=== PATIENT | female | born 1985 | race Caucasian/White ===

== ENCOUNTER → 2016-09-17 | Outpatient (CLI) | payer BC ==
[2016-09-17 10:34] LABS: CH 30.2; CHCM 34.2; HCT 37.4 % (34.0-46.0); HDW 2.53; HGB 12.6 gm/dL (11.4-16.0); MCH 29.9 pg (25.0-35.0); MCHC 33.7 g/dL (31.0-37.0); MCV 88.5 fL (80.0-100.0); Mean Platelet Volume 7.4; RBC 4.22 m/uL (3.80-5.40); RDW 12.9 % (11.5-15.5); WBC 10.2 k/uL (3.8-10.6)
[2016-09-17 11:04] LABS: Non-African American GFR(MDRD) >60 (>60 ml/min/1.73 sqM)
[2016-09-17 11:33] LABS: Hepatitis B Surface Ag Index 0.05
[2016-09-19 06:04] LABS: HIV-1/HIV-2 Ab Screen NONREAC (NON REAC)
[2016-09-20 03:56] LABS: Toxoplasma Antibody (IgG) <3.0 IU/mL (<7.2)
== END | disposition home or self-care (01) ==
LOC: LABWHC1 09:20
PROVIDERS: ATTEND Obstetrics & Gynecology
DX: Z34.82 Encounter for supervision of other normal pregnancy, second trimester (principal); Z3A.00 Weeks of gestation of pregnancy not specified
CPT/HCPCS: 36415; 82565; 82950; 85027; 86762; 86777; 86778; 86780; 86850; 86900; 86901; 87340; 87389

== ENCOUNTER → 2016-11-01 | Outpatient (CLI) | payer BC ==
--- NOTE | 2016-11-01 16:58 | US ---
EXAMINATION TYPE: US OB anatomy transabd DATE OF EXAM: 11/01/2016 4:43 PM COMPARISON: NONE HISTORY: LGA TECHNIQUE: EXAM MEASUREMENTS: GESTATIONAL AGE / DATING Physician Established: (33 weeks/1 days) EDC: 12/19/2016 Dates by LMP: (33 weeks/3 days) EDC: 12/17/2016 Dates by First Scan: (32 weeks/2 days) EDC: 12/26/2016 Dates by Current Scan for: (32 weeks/2 days) EDC: 12/25/2016 SURVEY IUP: Single PLACENTA: Posterior PREVIA: No previa LUCERO: 13.7 cm Normal CERVICAL LENGTH (transabdominal: norm > 3.0cm): 5.0 cm BIOMETRY PRESENTATION: Breech BPD: 8.1 cm 32 weeks / 4 days HC: 29.3 cm 32 weeks / 3 days AC: 37.3 cm 31 weeks / 3 days FL: 6.3 cm 32 weeks / 5 days ESTIMATED WEIGHT IN GRAMS: 1870 grams ESTIMATED WEIGHT IN LBS/OZS: 4 lbs. 2 oz. WEIGHT PERCENTAGE BASED ON ESTABLISHED DATE: 12 % HC/AC: 1.1 FL/AC: 23% HEART RATE: 135 bpm RHYTHM: Normal ANATOMY SEEN (within normal limits): * Lateral Vent (< 1 cm) 1.0 cm * Cisterna Magna (< 1.1 cm) 0.6 cm * Cerebellum (varies with age) 3.9 cm Cavus Septi Pellucidi Four Chamber Heart Outflow tracts: LVOT/RVOT Stomach Situs Nose / Lips Diaphragm Kidneys (bilateral) Bladder Three Vessel Cord Longitudinal Spine Transverse Spine Arms (bilateral) Legs (bilateral) ANATOMY NOT SEEN: * Nuchal Fold (< 0.6 cm) cm Choroid Plexus (bilateral) Midline Falx Cord Insert TECHNOLOGIST IMPRESSION: growth according to dates, limited anatomy due to advanced gestational age and position. Lateral ventricle measuring at 1.0 cm, upper limits of normal. IMPRESSION: Finn fetus present in a breech presentation with a gestational age of 32 weeks 2 days +/- 3 week s. Estimated date of confinement based on this examination is 12/25/2016.
== END | disposition home or self-care (01) ==
LOC: RADUSWWP 15:40
PROVIDERS: ATTEND Obstetrics & Gynecology
DX: O36.63X0 Maternal care for excessive fetal growth, third trimester, not applicable or unspecified (principal); O32.1XX0 Maternal care for breech presentation, not applicable or unspecified; Z3A.32 32 weeks gestation of pregnancy
CPT/HCPCS: 76811

== ENCOUNTER 2016-12-19 10:51 | Inpatient (IN) | payer BC ==
[2016-12-23] MEDS ORDERED: TERBUTALINE 1 MG/ML VIAL SQ PRN (06:52)
[2016-12-23] MEDS ORDERED: CARBOPROST TROMETHAMINE 250 MCG/ML 1 ML AMP IM PRN (06:52)
[2016-12-23] MEDS ORDERED: LIDOCAINE 1% (PF) 10 MG/ML (30 ML SDV) SQ PRN (06:52)
[2016-12-23] MEDS ORDERED: OXYTOCIN 10 UNIT/ML 1 ML VIAL IM PRN (06:52)
[2016-12-23] MEDS ORDERED: METHYLERGONOVINE 0.2 MG/ML 1 ML AMP IM PRN (06:52)
[2016-12-23] MEDS ORDERED: OXYTOCIN 20 UNITS/1000 ML NS 1,000 ML IV SCH (07:00)
[2016-12-23 07:04] LABS: Basophils % (A) 0 %; CH 30.5; Eosinophils # (A) 0.1 k/uL (0-0.7); Eosinophils % (A) 1 %; HCT 36.8 % (34.0-46.0); HDW 2.61; HGB 12.6 gm/dL (11.4-16.0); Luc # (Auto) 0.19; Luc % (Auto) 2; Lymphocytes # (A) 2.2 k/uL (1.0-4.8); Lymphocytes % (A) 23 %; MCH 29.8 pg (25.0-35.0); MCHC 34.1 g/dL (31.0-37.0); MCV 87.5 fL (80.0-100.0); Mean Platelet Volume 8.1; Monocytes # (A) 0.4 k/uL (0-1.0); Monocytes % (A) 5 %; Neutrophils # (A) 6.3 k/uL (1.3-7.7); Neutrophils % (A) 69 %; RBC 4.21 m/uL (3.80-5.40); RDW 13.4 % (11.5-15.5); WBC 9.3 k/uL (3.8-10.6); WBC (Perox) 9.35
[2016-12-23] MEDS: LACTATED RINGERS 1,000 ML IV SCH ×3 (07:04→22:01)
[2016-12-23 07:44] VITALS: BMI 36.6
[2016-12-23] MEDS ORDERED: SODIUM CHLORIDE 0.9% 100 ML BAG ONE (14:25)
[2016-12-23] MEDS ORDERED: fentaNYL (PF) 50 MCG/ML 5 ML AMP ONE (14:25)
[2016-12-23] MEDS ORDERED: BUPIVACAINE (PF) 0.25% 30 ML VIAL ONE (14:25)
[2016-12-23] MEDS ORDERED: CLINDAMYCIN 600 MG in DEXTROSE 5% IN WATER 50 ML IVPB SCH ×2 (22:00)
[2016-12-24] MEDS ORDERED: CITRIC ACID-SODIUM CITRATE 15 ML CUP PO ONE (01:03)
[2016-12-24] MEDS ORDERED: ONDANSETRON 4 MG/2 ML VIAL ONE (01:18)
[2016-12-24] MEDS ORDERED: KETOROLAC 30 MG/ML 1 ML VIAL ONE (01:18)
[2016-12-24] MEDS ORDERED: LACTATED RINGERS 1,000 ML BAG IV ONE (01:18)
[2016-12-24] MEDS ORDERED: MORPHINE SULFATE (PF) 0.3 MG/0.3 ML SYR ONE (01:18)
[2016-12-24] MEDS ORDERED: OXYTOCIN 10 UNIT/ML 1 ML VIAL ONE (01:18)
[2016-12-24] MEDS ORDERED: PHENYLEPHRINE-0.9% NACL SYG 1 MG/10 ML SYRINGE ONE (01:18)
[2016-12-24] MEDS ORDERED: KETOROLAC 30 MG/ML 1 ML VIAL IVP PRN (01:39)
[2016-12-24] MEDS ORDERED: diphenhydrAMINE 50 MG/ML 1 ML VIAL IVP PRN ×3 (01:39→01:59)
[2016-12-24] MEDS ORDERED: ONDANSETRON 4 MG/2 ML VIAL IVP PRN ×2 (01:39→01:59)
[2016-12-24] MEDS ORDERED: MORPHINE SULFATE 4 MG/ML SYRINGE IVP PRN (01:39)
[2016-12-24] MEDS ORDERED: NALOXONE 0.4 MG/ML 1 ML VIAL IV PRN ×2 (01:39→01:59)
[2016-12-24] MEDS ORDERED: ZOLPIDEM 5 MG TAB PO PRN (01:59)
[2016-12-24] MEDS ORDERED: ACETAMINOPHEN TAB 325 MG TAB PO PRN (01:59)
[2016-12-24] MEDS ORDERED: IBUPROFEN 600 MG TAB PO PRN (01:59)
[2016-12-24] MEDS ORDERED: diphenhydrAMINE 25 MG CAP PO PRN (01:59)
[2016-12-24] MEDS ORDERED: diphenhydrAMINE 50 MG CAP PO PRN (01:59)
[2016-12-24] MEDS ORDERED: METOCLOPRAMIDE 5 MG/ML 2 ML VIAL IVP PRN (01:59)
--- NOTE | 2016-12-24 02:03 | P.HPOB ---
History of Present Illness H&P Date: 12/24/16 Chief Complaint: Intrauterine at term Nini is a 31-year-old at 40 weeks 4 days gestation arise for induction of labor. Her course was unremarkable and she was feeling well at this time. Pertinent labs did include O+ blood type Rh have been was negative. Rubella was immune, hepatitis B surface antigen and groupie strep were both negative as well. This morning at presentation she was dilated 1 cm 60% effaced artificial rupture membranes was performed clear fluid was noted. She planned epidural for analgesia. On physical exam vital signs are stable and afebrile. Heart regular, lungs clear, extremities without pain. heart tones in the 130s to 140s and reactive. Assessment intrauterine at term. Plan expect spontaneous vaginal delivery Past Medical History Past Medical History: No Reported History Additional Past Medical History / Comment(s): 2014 uncomplicated of male History of Any Multi-Drug Resistant Organisms: None Reported Past Surgical History: No Surgical Hx Reported Past Anesthesia/Blood Transfusion Reactions: No Reported Reaction Past Psychological History: No Psychological Hx Reported Smoking Status: Never smoker - Past Family History Father Family Medical History: No Reported History Medications and Allergies Home Medications Medication Instructions Recorded Confirmed Type Pnv with Ca,No.72/Iron/FA 1 tab PO DAILY 12/23/16 12/23/16 History [ Plus Tablet] Allergies Allergy/AdvReac Type Severity Reaction Status Date / Time Penicillins Allergy Rash/Hives Verified 12/23/16 06:49 Exam Osteopathic Statement: *. No significant issues noted on an osteopathic structural exam other than those noted in the History and Physical/Consult. - Vital Signs Vital signs: Vital Signs Temp Resp BP 12/23/16 07:36 97.0 F L 17 110/71 Intake and Output 12/23/16 12/23/16 12/24/16 14:59 22:59 06:59 Intake Total 1000 Output Total 850 Balance 150 Intake: Intake, IV Titration 1000 Amount Lactated Ringers 1,000 ml 1000 @ 125 mls/hr IV .Q8H [facility] Rx#:[id number] Output: Urine 850 Straight 250 Other: # Voids 1 Weight 90.718 kg Patient Weight 12/24/16 06:59 Weight 90.718 kg - OBG Physical Exam Abdomen: bowel sounds normal, no diffuse tenderness, no bruit present, no guarding noted, no hepatomegaly, no splenomegaly, no mass Vulva: both: normal Vagina: normal moisture, no discharge Cervix: no lesion, no discharge Results Result Diagrams: 12/23/16 06:55
--- NOTE | 2016-12-24 02:07 | P.OP ---
Date of Procedure: 12/24/16 Preoperative Diagnosis: Intrauterine at 40 weeks: Failure to progress Postoperative Diagnosis: Same Procedure(s) Performed: Primary Low-transverse section Anesthesia: spinal Surgeon: Marshall Lynne Formal Wear Rental Clerk #1: Rivka Prescott Estimated Blood Loss (ml): 500 IV fluids (ml): 1,000 Urine output (ml): 100 Pathology: other (Placenta) Condition: stable Disposition: floor Operative Findings: Female delivered from left occiput transverse position It is noted scores were 8 and 9 at one and 5 minutes respectively and the weight was 6 lbs. 15 oz. Description of Procedure: Nini was taken to the operating suite where a spinal anesthetic was found to be adequate. She was prepped and draped in the normal sterile fashion and placed in the dorsal supine position with leftward tilt. Initially a Pfannenstiel skin incision was made and this incision was then carried through to the underlying layer of the fascia with the second knife. Fascia was then nicked in the midline and this opening was extended laterally with Paredes scissors. Superior and inferior aspect of this incision were then grasped tented up and bluntly and sharply dissected off the rectus muscles rectus muscles were then divided midline and sharp dissection through the peritoneum was made. This opening was then extended superiorly and inferiorly with good visualization of both bowel bladder. Bladder blade was then placed bladder flap identified and entered sharply with Metzenbaum scissors. This opening was then extended across face uterus with Metzenbaum scissors and her bladder flap was digitally created. Knife was then used to incise uterus hemostat was then used to open this incision completely and it was then extended bluntly. Head was then atraumatically delivered. Mouth nares were bulb suctioned anterior posterior shoulders were then delivered with gentle downward upper traction. Umbilical cord was then clamped cut usual fashion an nursery personnel was present to assume care. Placenta was then delivered intact and Pitocin was added to the IV. Uterus was then exteriorized cleared of clots and debris and closed in 2 layers with 0 Vicryl suture. She was noted that the corner did have a little bit of bleeding and required [id number] stitch sutures to obtain excellent hemostasis. Once excellent hemostasis was obtained blood and debris was suctioned the posterior cul-de-sac and uterus was reinserted into the abdomen. Reinspection incision showed hemostasis therefore peritoneal layer was closed with 0 Vicryl suture. Fascial layer was then closed with 0 Vicryl suture one layer of 3-0 Vicryl was placed in the deep subcuticular tissues to reapproximate skin and close space. Skin was then closed with 3 -0 Vicryl on a Bo needle. Sponge, lap, needle counts were all correct 2. Patient was then taken to the recovery room in stable and satisfactory condition.
[2016-12-24] MEDS: LACTATED RINGERS 1,000 ML IV SCH ×4 (03:28→19:19)
[2016-12-24] MEDS: SENNOSIDES-DOCUSATE SODIUM 1 EACH TAB PO SCH ×2 (08:21→20:26)
--- NOTE | 2016-12-24 10:39 | P.PNOBGPC ---
Subjective - Subjective Principal diagnosis: Postoperative day 0 Interval history: Currently Nini is doing well from her section approximate 8 hours ago. She is just now getting up sure pain is well tolerated at this time she is not really had anything to eat as she does have some nausea but she did receive Zofran seems to be little bit better. Otherwise we will be watching her closely today and advancing things slowly. Likely she will need by mouth pain medication later day. Otherwise currently again she is stable. Objective - Vital Signs Latest vital signs: Vital Signs Temp Pulse Resp BP Pulse Ox 12/24/16 07:57 98.3 F 74 18 102/67 95 12/24/16 04:07 97.0 F L 62 14 95/55 95 12/24/16 03:37 58 L 16 95/57 95 12/24/16 03:07 97.0 F L 68 16 102/60 96 12/24/16 02:52 97.0 F L 76 16 106/60 97 12/24/16 02:37 97.2 F L 88 16 96/64 95 12/24/16 02:22 84 16 100/56 96 12/24/16 02:07 97.6 F 83 16 90/51 99 Intake and Output 12/23/16 12/24/16 12/24/16 22:59 06:59 14:59 Intake Total 1000 2100 Output Total 850 600 130 Balance 150 1500 -130 Intake: IV 1600 Clindamycin 600 mg In 100 Dextrose 5% in Water 50 ml @ 100 mls/hr IVPB Q8HR [facility] Rx#:[id number] Intake, IV Titration 1000 500 Amount Lactated Ringers 1,000 ml 1000 @ 125 mls/hr IV .Q8H [facility] Rx#:[id number] Lactated Ringers 1,000 ml 500 @ 125 mls/hr IV .Q8H [facility] Rx#:[id number] Output: Urine 850 100 100 Straight 250 100 Emesis 30 Estimated Blood Loss 500 Other: Voiding Method Indwelling Catheter Indwelling Catheter
[2016-12-24] MEDS ORDERED: IBUPROFEN 600 MG TAB PO ONE (23:38)
[2016-12-25] MEDS ORDERED: Acetaminophen-Codeine 300-30mg TAB PO PRN (00:34)
[2016-12-25 01:04] VITALS: TEMP 98.4
[2016-12-25] MEDS: Acetaminophen-Codeine 300-30mg TAB PO PRN ×2 (04:16→12:57)
[2016-12-25 07:12] LABS: Basophils % (A) 0 %; CH 30.5; CHCM 35.5; Eosinophils # (A) 0.1 k/uL (0-0.7); Eosinophils % (A) 1 %; HCT 32.9 % (34.0-46.0); HDW 2.65; HGB 11.3 gm/dL (11.4-16.0); Luc # (Auto) 0.17; Luc % (Auto) 1; Lymphocytes # (A) 1.7 k/uL (1.0-4.8); Lymphocytes % (A) 13 %; MCH 29.7 pg (25.0-35.0); MCHC 34.4 g/dL (31.0-37.0); MCV 86.5 fL (80.0-100.0); Mean Platelet Volume 8.4; Monocytes # (A) 0.7 k/uL (0-1.0); Monocytes % (A) 5 %; Neutrophils # (A) 10.6 k/uL (1.3-7.7); Neutrophils % (A) 80 %; RDW 13.4 % (11.5-15.5); WBC 13.3 k/uL (3.8-10.6); WBC (Perox) 12.37
[2016-12-25] MEDS: LACTATED RINGERS 1,000 ML IV SCH ×2 (08:00→10:49)
[2016-12-25] MEDS: SENNOSIDES-DOCUSATE SODIUM 1 EACH TAB PO SCH (08:01)
[2016-12-25 08:41] VITALS: BP 112/64; PULSE 92; RESP 18
--- NOTE | 2016-12-25 10:04 | P.PNOBGPC ---
Subjective - Subjective Principal diagnosis: Postop day 1 Interval history: Nini seen and evaluated. She is unsure if she wants home today or wait tomorrow. We'll continue to monitor her through the day she sure pain is well- controlled and there are no other changes. Should she decide be discharged later today that we fine. Prescriptions have been provided already. All the questions are answered for her at this time. Her vital signs are stable and afebrile. Heart regular, lungs clear, extremities without pain. Abdomen soft uterus is firm lochia is reported be light. Incisions intact. Assessment postop day 1. Plan discharged home follow up with me in 1 week. It is noted she is postop day 1 and that she did deliver the middle night medicine more why we would be more apt allow her to go home today she did deliver very early in the morning. Patient reports: Reports appetite normal : doing well Objective - Vital Signs Latest vital signs: Vital Signs Temp Pulse Resp BP Pulse Ox 12/25/16 08:00 98.4 F 92 18 112/64 96 12/25/16 00:00 98.4 F 84 16 106/63 96 12/24/16 19:53 98.3 F 70 16 100/62 96 12/24/16 15:11 98.1 F 73 18 98/56 93 L 12/24/16 12:00 98.1 F 66 18 105/59 95 Intake and Output 12/24/16 12/25/16 12/25/16 22:59 06:59 14:59 Intake Total 375 600 600 Output Total 600 Balance -225 600 600 Intake: Intake, IV Titration 375 Amount Lactated Ringers 1,000 ml 375 @ 125 mls/hr IV .Q8H [facility] Rx#:[id number] Oral 600 600 Output: Urine 600 Other: Voiding Method Toilet Toilet - Labs Labs: Abnormal Lab Results - Last 24 Hours (Table) 12/25/16 Range/Units 06:59 WBC 13.3 H (3.8-10.6) k/uL Hgb 11.3 L (11.4-16.0) gm/dL Hct 32.9 L (34.0-46.0) % Neutrophils # 10.6 H (1.3-7.7) k/uL
--- NOTE | 2016-12-25 10:49 | P.DS ---
Providers Date of admission: 12/23/16 06:34 Expected date of discharge: 12/25/16 Attending physician: Marshall Lynne Primary care physician: Stated None Hospital Course: Nini is feeling like she is ready to go home today. We'll plan discharged home later today. Vital signs are stable afebrile. There is no other changes noted from her progress note from earlier this morning. Plan will be to discharge her home today if she does change her mind be have to canceled discharge and plan for discharge tomorrow. Patient Condition at Discharge: Good Plan - Discharge Summary New Discharge Prescriptions: Acetaminophen-Codeine 300-30mg [Tylenol #3] 1 tab PO Q4H PRN #30 tablet PRN Reason: Pain Ibuprofen [Motrin] 600 mg PO Q6HR PRN #30 tab PRN Reason: Pain Discharge Medication List Pnv with Ca,No.72/Iron/FA [ Plus Tablet] 1 tab PO DAILY 12/23/16 [ History] Acetaminophen-Codeine 300-30mg [Tylenol #3] 1 tab PO Q4H PRN #30 tablet [Rx] Ibuprofen [Motrin] 600 mg PO Q6HR PRN #30 tab 12/25/16 [Rx] Follow up Appointment(s)/Referral(s): Marshall Lynne DO [Doctor of Osteopathic Medicine] - 1 Week Activity/Diet/Wound Care/Special Instructions: No heavy lifting, limit stairs and driving and pelvic rest. If any high temperatures, heavy bleeding, or severe pain call my office Discharge Disposition: HOME SELF-CARE
--- NOTE | 2016-12-25 15:39 | P.PN ---
Subjective pod 1 status post spinal duramorph; doing ok Objective - Vital Signs Vital signs: Vital Signs Temp 98.4 F 12/25/16 08:00 Pulse 92 12/25/16 08:00 Resp 18 12/25/16 08:00 BP 112/64 12/25/16 08:00 Pulse Ox 96 12/25/16 08:00 Intake & Output 12/24/16 12/25/16 12/25/16 18:59 06:59 18:59 Intake Total 1250 600 600 Output Total 1530 Balance -280 600 600 Intake: Intake, IV Titration 1250 Amount Lactated Ringers 1,000 ml 1250 @ 125 mls/hr IV .Q8H [facility] Rx#:[id number] Oral 600 600 Output: Urine 1500 Straight 400 Emesis 30 Other: Voiding Method Toilet Toilet - Labs CBC & Chem 7: 12/25/16 06:59 Labs: Abnormal Lab Results - Last 24 Hours (Table) 12/25/16 Range/Units 06:59 WBC 13.3 H (3.8-10.6) k/uL Hgb 11.3 L (11.4-16.0) gm/dL Hct 32.9 L (34.0-46.0) % Neutrophils # 10.6 H (1.3-7.7) k/uL
== END 2016-12-25 15:30 | disposition home or self-care (01) | DRG 766 ==
LOC: 4FBP 12-23 06:34
PROVIDERS: ADMIT Obstetrics & Gynecology; ATTEND Obstetrics & Gynecology
PROC: 10907ZC Drainage of Amniotic Fluid, Therapeutic from Products of Conception, Via Natural or Artificial Opening (ICD-10-PCS; principal; 2016-12-23)
PROC: 3E033VJ Introduction of Other Hormone into Peripheral Vein, Percutaneous Approach (ICD-10-PCS; principal; 2016-12-23)
PROC: 3E0R3CZ (ICD-10-PCS; principal; 2016-12-23)
PROC: 00HU33Z Insertion of Infusion Device into Spinal Canal, Percutaneous Approach (ICD-10-PCS; principal; 2016-12-23)
PROC: 10D00Z1 Extraction of Products of Conception, Low, Open Approach (ICD-10-PCS; 2016-12-24)
DX: O48.0 Post-term pregnancy (principal); O62.2 Other uterine inertia; Z88.0 Allergy status to penicillin; Z37.0 Single live birth; Z3A.40 40 weeks gestation of pregnancy
CPT/HCPCS: 85025; 88307

== ENCOUNTER 2022-05-31 09:43 | Emergency (ER) | payer BC ==
[2022-05-31 09:54] VITALS: RESP 18; TEMP 98
--- NOTE | 2022-05-31 11:07 | XR ---
EXAMINATION TYPE: XR tibia fibula 2 views LT DATE OF EXAM: 05/31/2022 Comparison: None Clinical History: 37-year-old female with popping sensation while playing tennis, pain, lower tib/Ach illes Findings: There appears to be fusiform thickening of the middle third Achilles tendon at the level of the poste rior malleolus. Otherwise, no acute fracture, subluxation, or dislocation. Impression: Unable to exclude fusiform thickening of the middle third Achilles tendon. Given the patient's histor y, underlying Achilles tendon injury would be difficult to exclude. No acute osseous abnormality seen . If indicated, Achilles tendon ultrasound may be useful to further evaluate.
--- NOTE | 2022-05-31 11:23 | ED ---
Lower Extremity Injury HPI - General Chief Complaint: Extremity Injury, Lower Stated Complaint: leg pain Time Seen by Provider: 05/31/22 09:58 Source: patient, RN notes reviewed Mode of arrival: ambulatory Limitations: no limitations - History of Present Illness Initial Comments: 37-year-old female presents emergency department with chief complaint left calf pain. Patient states that she went to push off to run for a ball and tenderness and states she felt a pop in her calf. Patient states she has moderate pain pain with range of motion. Patient has a prior injuries patient states it's better at rest worse with any movement denies any paresthesias. - Related Data Home Medications Medication Instructions Recorded Confirmed Levono-E Estrad 0.15-0.03-0.01 Tab 1 tab PO HS 05/31/22 05/31/22 Previous Rx's Medication Instructions Recorded Ibuprofen [Motrin] 600 mg PO Q8HR PRN #20 tab 05/31/22 Allergies Allergy/AdvReac Type Severity Reaction Status Date / Time Penicillins Allergy Rash/Hives Verified 05/31/22 10:56 Review of Systems ROS Statement: Those systems with pertinent positive or pertinent negative responses have been documented in the HPI. ROS Other: All systems not noted in ROS Statement are negative. Past Medical History Past Medical History: No Reported History Additional Past Medical History / Comment(s): 2015 uncomplicated of male History of Any Multi-Drug Resistant Organisms: None Reported Past Surgical History: No Surgical Hx Reported Past Anesthesia/Blood Transfusion Reactions: No Reported Reaction Past Psychological History: No Psychological Hx Reported Smoking Status: Never smoker Past Alcohol Use History: Occasional Past Drug Use History: None Reported - Past Family History Father Family Medical History: No Reported History General Exam Limitations: no limitations General appearance: alert, in no apparent distress Head exam: Present: atraumatic, normocephalic, normal inspection Eye exam: Present: normal appearance, PERRL, EOMI. Absent: scleral icterus, conjunctival injection, periorbital swelling Respiratory exam: Present: normal lung sounds bilaterally. Absent: respiratory distress, wheezes, rales, rhonchi, stridor Cardiovascular Exam: Present: regular rate, normal rhythm, normal heart sounds. Absent: systolic murmur, diastolic murmur, rubs, gallop, clicks Extremities exam: Present: other (Left calf there is tenderness palpation and throughout the Achilles, positive Cervantes test, neurovascular intact) Course Vital Signs 05/31/22 09:50 Temperature 98.0 F Pulse Rate 99 Respiratory 18 Rate Blood Pressure 139/95 O2 Sat by Pulse 99 Oximetry Procedures - Orthopedic Splinting/Casting Injury #1 Side: left Lower Extremity Injury Location: short leg, ankle, foot Lower Extremity Immobilizer: posterior splint, synthetic pre-padded splint Other Orthopedic Equipment: crutches Medical Decision Making - Medical Decision Making X-rays shows some thickening over the Achilles region, concern for possible injury patient was splinted and will follow-up with orthopedics. Disposition Clinical Impression: Achilles tendon injury Disposition: HOME SELF-CARE Condition: Stable Instructions (If sedation given, give patient instructions): Achilles Tendon Rupture (ED) Additional Instructions: Please return to the Emergency Department if symptoms worsen or any other concerns. Prescriptions: Ibuprofen [Motrin] 600 mg PO Q8HR PRN #20 tab PRN Reason: Pain Is patient prescribed a controlled substance at d/c from ED?: No Referrals: Thanh Martinez MD [STAFF PHYSICIAN] - 1-2 days Time of Disposition: 11:23
[2022-05-31 11:47] VITALS: BP 136/87; PULSE 84
== END 2022-05-31 11:45 | disposition home or self-care (01) ==
LOC: EC 09:43
DX: S86.002A Unspecified injury of left Achilles tendon, initial encounter (principal); Z88.0 Allergy status to penicillin; X50.0XXA Overexertion from strenuous movement or load, initial encounter
CPT/HCPCS: 99283

== ENCOUNTER 2022-06-08 11:51 | Day surgery (SDC) | payer BC ==
[~2022-06-08 11:51] MED LIST: DEXAMETHASONE SOD PHOSPHATE 4 MG/ML 1 ML VIAL IV ONE; HYDROmorphone 0.5 MG/0.5 ML SYRINGE IVP PRN; LACTATED RINGERS 1,000 ML IV SCH; ONDANSETRON 4 MG/2 ML VIAL IVP ONE
[2022-06-08] MEDS ORDERED: SCOPOLAMINE 1 MG/72 HR PATCH TRANSDERM ONE (12:45)
[2022-06-08] MEDS ORDERED: MIDAZOLAM 2 MG/2 ML VIAL IVP ONE (12:59)
[2022-06-08] MEDS ORDERED: BUPIVACAINE (PF) 0.5% 30 ML VIAL MISCELLANE ONE (13:02)
--- NOTE | 2022-06-08 13:14 | P.ANPRN ---
Procedure Note - Anesthesia - Nerve Block Performed Left Popliteal Single Time Out Performed: Yes (1258) Date of Procedure: 06/08/22 Procedure Start Time: 12:58 Procedure Stop Time: 12:06 Location of Patient: PreOp Indication: Acute Post-Operative Pain, Dx/Pain Location (Left ankle), Requested by Surgeon Specifically requested for management of pain by DrNargis: Ceasar Tee Sedation Type: Sedate with meaningful contact maintained Preparation: Sterile Prep Position: Right Lateral Catheter: None Needle Types: Pajunk (100 mm) Needle Gauge: 21 Ultrasound used to visualize needle placement: Yes Ultrasound used to observe medication spread: Yes Injectate: 0.5% Ropivacaine (see comment for volume) (25 cc) Narrative: in addition to this, 5 mL of 0.5% ropivacaine infiltrated between medial malleolus and the extensor halluicis tendon to cover the saphenous nerve at the ankle. Blood Aspirated: No Pain Paresthesia on Injection Noted: No Resistance on Injection: Normal Image Stored and Saved: Yes Events: Uneventful and Well Tolerated
[2022-06-08] MEDS ORDERED: fentaNYL (PF) 50 MCG/ML 2 ML AMP ONE (13:24)
[2022-06-08] MEDS ORDERED: SUCCINYLCHOLINE CHLORIDE 200 MG/10 ML VIAL IV ONE (13:24)
[2022-06-08] MEDS ORDERED: ROPIVACAINE 5 MG/ML 30 ML VIAL ONE (13:24)
[2022-06-08] MEDS ORDERED: LIDOCAINE 2% INJ 20 MG/ML (2 ML VIAL) ONE (13:24)
[2022-06-08] MEDS ORDERED: MIDAZOLAM 2 MG/2 ML VIAL ONE (13:24)
[2022-06-08] MEDS ORDERED: PROPOFOL 10 MG/ML 20 ML VIAL IV ONE (13:24)
--- NOTE | 2022-06-08 14:48 | P.OP ---
Date of Procedure: 06/08/22 Preoperative Diagnosis: Left Achilles tendon rupture Postoperative Diagnosis: Same Procedure(s) Performed: Primary repair of left Achilles tendon rupture Implants: Arthrex 4.75 mm swivel lock anchors 2 Anesthesia: MUKESHA Surgeon: Ceasar Tee Estimated Blood Loss (ml): 2 Pathology: none sent Condition: stable Disposition: PACU Description of Procedure: Prior to the patient being brought to the operating room, anesthesia administered a nerve block on the affected lower extremity. The patient was then taken to the operating room. Timeout was taken to confirm correct patient identifiers, correct site of surgery, and correct procedure. When all staff in the room were in agreement with the timeout, the patient was induced and placed under general anesthesia. The patient was then placed on the operating room table in the prone position with the ankles to the edge of the bed, with appropriate padding beneath bony prominences and in the thoracic area. Once anesthesia was satisfied with the position of the patient. A well-padded tourniquet was placed on the thigh of the affected extremity. The leg was then prepped and draped in the usual manner. The leg was exsanguinated, the knee slightly flexed, and the tourniquet inflated to 250 mmHg. Attention was directed over the posterior ankle where there was a palpable defect in the Achilles tendon noted. Transverse incision was made at the level of the defect. The incision was deepened down to the subcutaneous tissue careful to identify, avoid, and retract any neurovascular structures and cauterize any bleeding vessels. Blunt dissection was then carried down to the peritenon. Peritenon was incised and reflected away from the proximal and distal stumps of the rupture site. There was significant fraying as to be expected in this type of injury. Any nonviable ends of the tendon were trimmed away with scissors. Blunt dissection was then used to separate the peritenon from the body of the proximal portion of the stump. A ring forceps was used to grab the proximal stump and placed distal traction on it. The Arthrex PARS jig was then inserted with the arms on either side of the tendon but inside the peritenon. A straight needle was placed in the #1 slot in the jig to lock the tendon in place. When the clamp was removed that was holding the tendon there was no shortening. Straight needles with fiber tape suture were then passed through holes 2 through 4. And then another sutures plaster through the #1 needle was placed through the tendon. A total of 4 sutures were passed. All the sutures were then aligned and then the jig was slowly pulled distally bring the suture between the peritenon and tendon. Then tension was placed on both ends of the suture group to take the creep out of the suture within the tendon. And pulling on both sets of sutures created tension within the gastroc muscle belly indicating that there was good grasp of the tissue with the suture. Then 2 small stab incisions were made on either side of the Achilles insertion on the calcaneus. These were deepened bluntly down to bone and then the 3.4 mm drill bit was used to create holes for the 4.75 swivel lock anchors. Using the incisions as an entry point, the tendon passer with wire loop was then placed through the distal portion of the tendon so that it passed through the stump at the rupture site. Then the suture passing loop was used to grasp the suture from the proximal stump and pulled through the distal stump and out the small stab incision. This was done through both the medial and lateral holes. One set of sutures were then placed through the 4.75 swivel lock anchor and then inserted into the corresponding drill hole in the calcaneus, and advanced until fully seated. Then the other set of sutures were placed through the 4.75 swivel lock anchor, then tension was placed on the suture to pull it tight with the ankle positioned just slightly plantar flexed. With the tensioning and ankle position correct, the remaining 4.75 mm swivel lock anchor was inserted into the other drill hole and advanced locking the suture in place. With the repair completed, the knee was flexed to 90 and Cervantes test performed which was found to be negative. All suture was then cut and then all wounds irrigated thoroughly with antibiotic saline. Subcutaneous closure of the wounds was done with 4-0 Monocryl. Skin closure done with 4-0 Stratafix in a running subcuticul ar manner. Dermal glue was applied to the incisions and allowed to dry. Then Steri-Strips were applied over the incisions. An Arthrex jumpstart dressing was placed over the incisions and then a bulky dry dressings applied to the leg. Then a well-padded, well molded plaster posterior mold/sugar tong splint was applied to the leg. The ankle was held in slight plantar flexion as the splint dried. Once the splint was dried the patient was then rolled onto the transfer table at which point anesthesia was reversed and the patient was extubated. The patient then left the operating room to recovery with vital signs stable.
[2022-06-08 14:55] VITALS: TEMP 97.7
[2022-06-08] MEDS ORDERED: HYDROcodone/APAP 5-325MG 1 EACH TAB ONE (15:49)
[2022-06-08] MEDS ORDERED: HYDROcodone/APAP 5-325MG 1 EACH TAB PO ONE (15:50)
[2022-06-08 16:06] VITALS: BP 136/83; PULSE 81; RESP 16
== END 2022-06-08 16:22 | disposition home or self-care (01) ==
LOC: OR 11:51
PROVIDERS: ATTEND Podiatrist
DX: S86.012A Strain of left Achilles tendon, initial encounter (principal); M66.372 Spontaneous rupture of flexor tendons, left ankle and foot; G89.18 Other acute postprocedural pain; I10 Essential (primary) hypertension; E78.5 Hyperlipidemia, unspecified; E03.9 Hypothyroidism, unspecified; F41.9 Anxiety disorder, unspecified; F32.A Depression, unspecified; Z88.0 Allergy status to penicillin; Z98.891 History of uterine scar from previous surgery; G47.33 Obstructive sleep apnea (adult) (pediatric); Z79.899 Other long term (current) drug therapy; X58.XXXA Exposure to other specified factors, initial encounter
CPT/HCPCS: 81025; 64445; 76942; 27650; C1713 ×2; J2250; J0330; J1100; J0690; J2405; J3010; J2795; J2704; J2001

== ENCOUNTER → 2024-06-25 | Outpatient (CLI) | payer BC ==
[2024-06-25 16:46] LABS: BUN/Creat Ratio 14.88 Ratio (12.00-20.00); Blood Urea Nitrogen 11.9 mg/dL (9.0-27.0); Carbon Dioxide 23.1 mmol/L (21.6-31.8); Chloride 103 mmol/L (96-109); Chol/HDL Ratio 4.12 Ratio; Glucose 77 mg/dL (70-110); LDL Cholesterol,Calculated 121.2 mg/dL (0.0-131.0); Potassium 4.3 mmol/L (3.5-5.5); Sodium 137 mmol/L (135-145); T4, Free (Free Thyroxine) 1.01 ng/dL (0.80-1.80)
== END | disposition home or self-care (01) ==
LOC: LABWHC1 09:25
PROVIDERS: ATTEND Family Medicine
DX: E04.9 Nontoxic goiter, unspecified (principal); E78.5 Hyperlipidemia, unspecified
CPT/HCPCS: 36415; 80048; 80061; 82306; 84439; 84443

== ENCOUNTER → 2024-07-31 | Outpatient (CLI) | payer BC ==
--- NOTE | 2024-08-01 08:09 | MM ---
Reason for Exam: Screening (asymptomatic). Baseline mammogram. Patient History: Menarche at age 12. First Full-Term at age 30. Late child-bearing (after 30). Patient has history of breast feeding. Paternal grandmother had breast cancer, age 66. Paternal aunt had breast cancer, age 39. Paternal cousin (Jossie) had breast cancer, age 38. Last menstrual period: 07/20/2024 Risk Values: Jessica 5 year model risk: 0.8%. NCI Lifetime model risk: 12.4%. Prior Study Comparison: Patient's first Mammogram. Tissue Density: The breasts are heterogeneously dense, which may obscure small masses. Findings: Analyzed By CAD. Symmetric density upper outer left breast 7.5 cm from the nipple. Additional views are recommended. No suspicious calcifications within either breast. No skin thickening seen. Overall Assessment: Incomplete: need additional imaging evaluation, BI-RAD 0 Management: Diagnostic Mammogram of the left breast. . Patient should continue monthly self-breast exams. A clinical breast exam by your physician is recommended on an annual basis. This exam should not preclude additional follow-up of suspicious palpable abnormalities. Note on Jessica scores and lifetime risk: 1. A Jessica score greater than 3% is considered moderate risk. If this is the case, consider specialist referral to assess eligibility for a risk reducing agent. 2. If overall lifetime risk for the development of breast cancer is 20% or higher, the patient may qualify for future screening with alternating mammogram and breast MRI. [facility], , 08/01/2024 8:06 AM. Electronically signed and approved by: Ramez Marques M.D. Radiologis
== END | disposition home or self-care (01) ==
LOC: RADMAMWWP 12:56
PROVIDERS: ATTEND Obstetrics & Gynecology
DX: Z12.31 Encounter for screening mammogram for malignant neoplasm of breast (principal); R92.333 Mammographic heterogeneous density, bilateral breasts; Z80.3 Family history of malignant neoplasm of breast
CPT/HCPCS: 77067

== ENCOUNTER → 2024-08-16 | Outpatient (CLI) | payer BC ==
--- NOTE | 2024-08-16 10:31 | MM ---
Reason for Exam: Clinical finding. Last screening mammogram was performed less than 1 month ago. Patient History: Menarche at age 12. First Full-Term at age 30. Late child-bearing (after 30). Patient has history of breast feeding. Paternal grandmother had breast cancer, age 66. Paternal aunt had breast cancer, age 39. Paternal cousin (Jossie) had breast cancer, age 38. Risk Values: Ejssica 5 year model risk: 0.8%. NCI Lifetime model risk: 12.4%. Prior Study Comparison: 07/31/2024 Bilateral MG screening mammo w CAD, [facility]. Tissue Density: Left: The breasts are heterogeneously dense, which may obscure small masses. Findings: Analyzed By CAD. Under compression, no persistent suspicious asymmetric density is evident. No underlying distortion evident. No suspicious groups of microcalcifications, spiculated or lobular masses, architectural distortion or other secondary signs of malignancy are mammographically apparent. Overall Assessment: Probably benign, BI-RAD 3 Management: Diagnostic Mammogram of the left breast in 6 months. A negative mammogram report should not preclude additional follow up of suspicious palpable abnormalities. Patient should continue monthly self breast exam. A clinical breast exam by your physician is recommended on an annual basis and results should be correlated with mammographic findings. Note on Jessica scores and lifetime risk: 1. A Jessica score greater than 3% is considered moderate risk. If this is the case, consider specialist referral to assess eligibility for a risk reducing agent. 2. If overall lifetime risk for the development of breast cancer is 20% or higher, the patient may qualify for future screening with alternating mammogram and breast MRI. [facility], , 08/16/2024 10:28 AM. Electronically signed and approved by: Jose L Brantley D.O. Radiologis
== END | disposition home or self-care (01) ==
LOC: RADMAMWWP 10:10
PROVIDERS: ATTEND Obstetrics & Gynecology
DX: R92.8 Other abnormal and inconclusive findings on diagnostic imaging of breast (principal); Z80.3 Family history of malignant neoplasm of breast; R92.332 Mammographic heterogeneous density, left breast
CPT/HCPCS: 77061; 77065

== ENCOUNTER → 2025-03-04 | Outpatient (CLI) | payer BC ==
--- NOTE | 2025-03-04 13:33 | MM ---
Reason for Exam: Follow-up at short interval from prior study. Last screening mammogram was performed 7 month(s) ago. Patient History: Menarche at age 12. First Full-Term at age 30. Late child-bearing (after 30). Patient has history of breast feeding. Patient used Hormonal Contraceptives for 20 years. Paternal grandmother had breast cancer, age 66. Paternal aunt had breast cancer, age 39. Paternal cousin (Jossie) had breast cancer, age 38. Last menstrual period: 02/03/2025 Risk Values: Jessica 5 year model risk: 0.8%. NCI Lifetime model risk: 12.4%. Prior Study Comparison: 07/31/2024 Bilateral MG screening mammo w CAD, [facility]. 08/16/2024 Left MG 3D work up w/cad , [facility]. Tissue Density: Left: There are scattered areas of fibroglandular density. Findings: Analyzed By CAD. Area of concern/asymmetry compresses out on spot compression imaging. No suspicious masses, calcifications or distortions. Overall Assessment: Benign, BI-RAD 2 Management: Screening Mammogram of both breasts in 6 months. Results were given to the patient verbally at the time of exam. Patient should continue monthly self-breast exams. A clinical breast exam by your physician is recommended on an annual basis. This exam should not preclude additional follow-up of suspicious palpable abnormalities. Note on Jessica scores and lifetime risk: 1. A Jessica score greater than 3% is considered moderate risk. If this is the case, consider specialist referral to assess eligibility for a risk reducing agent. 2. If overall lifetime risk for the development of breast cancer is 20% or higher, the patient may qualify for future screening with alternating mammogram and breast MRI. [facility], , 03/04/2025 1:29 PM. Electronically signed and approved by: Cesar Pennington DO
== END | disposition home or self-care (01) ==
LOC: RADMAMWWP 13:12
PROVIDERS: ATTEND Obstetrics & Gynecology
DX: R92.8 Other abnormal and inconclusive findings on diagnostic imaging of breast (principal); R92.322 Mammographic fibroglandular density, left breast; Z92.0 Personal history of contraception; Z80.3 Family history of malignant neoplasm of breast
CPT/HCPCS: 77061; 77065